=== PATIENT | female | born 1965 | race Caucasian/White ===

== ENCOUNTER 2019-09-22 22:10 | Emergency (ER) | payer BC ==
[~2019-09-22] VITALS: Ht 157.5 cm; Wt 86.2 kg
[2019-09-22] MEDS ORDERED: OMEPRAZOLE20 MG (22:18)
[2019-09-22] MEDS ORDERED: FOLTX TABLET1 EACH (22:19)
[2019-09-22] MEDS ORDERED: VITAMIN D250 MCG (22:19)
[2019-09-22] MEDS ORDERED: IRON240 MG (22:19)
[2019-09-23] MEDS ORDERED: NORFLEX100MG PO (15:12)
[2019-09-23] MEDS ORDERED: BACTRIM DS TAB1 EACH PO (15:12)
[2019-09-23] MEDS ORDERED: NAPROXEN500 MG PO (15:12)
== END 2019-09-23 16:53 | disposition home or self-care (01) ==
LOC: ER 22:10
DX: J90 Pleural effusion, not elsewhere classified (principal); J98.11 Atelectasis; R07.1 Chest pain on breathing